=== PATIENT | male | born 1970 | race Caucasian/White ===

== ENCOUNTER → 2023-06-08 10:47 | Outpatient (REF) | payer BC, SELFPAY | LOC: HO.SL 10:47 | PROVIDERS: PCP Family Medicine; Visit Provider Family Medicine | DX: R06.83 Snoring (principal); G25.81 Restless legs syndrome; G47.30 Sleep apnea, unspecified | CPT/HCPCS: 95806 ==

== ENCOUNTER → 2023-06-08 19:00 | Outpatient (BNV) | payer BC, SELFPAY | PROVIDERS: PCP Family Medicine; Visit Provider Internal Medicine | DX: R06.83 Snoring (principal) | CPT/HCPCS: 95806 ==